=== PATIENT | female | born 1975 | race Caucasian/White ===

== ENCOUNTER → 2024-12-07 | Outpatient (CLI) | payer BC, SELFPAY ==
--- NOTE | 2024-12-07 16:22 | XR_ITS ---
Examination: Foot, right, 3 views Technique: AP, oblique, lateral views foot, 3 views Date and time of exam: December 04, 2024 1838 hrs. Indications: Injury to the foot today, foot pain. Findings: Moderate osteopenia No acute fracture No dislocation Impression: No acute fracture If foot pain persists, consider CT scan foot without contrast follow-up
== END | disposition home or self-care (01) ==
PROVIDERS: PCP Family Medicine; Referring Provider Student in an Organized Health Care Education/Training Program; Visit Provider Student in an Organized Health Care Education/Training Program
DX: M79.671 Pain in right foot (principal)
CPT/HCPCS: 73630

== ENCOUNTER → 2024-12-21 | Outpatient (CLI) | payer BC, SELFPAY ==
--- NOTE | 2024-12-21 08:45 | XR_ITS ---
Examination: MRI right foot, without contrast Date and time of exam: December 21, 2024 0854 hours INDICATIONS: Patient dropped pleural based on the foot November 02, 2024 with persistent dorsal pain stiffness and swelling Technique: Multiple axial sagittal and coronal images of the right foot have been obtained with the Siemens high-resolution 1.5 [employer] MRI scanner. Images obtained include T2-weighted fat-suppressed sagittal sections, TR 3500, TE 46, T2 weighted coronal fat suppressed images, TR 3050, TE 84, T2-weighted transverse fat suppressed images, TR 3260, TE 63, proton density transverse images, TR 4720 TE 46, and T1 weighted coronal images, TR 560, TE 13. Findings: Mild thickening of the plantar fascia Small effusion first metatarsophalangeal joint No soft tissue hematoma No foreign body No cortical bone destruction IMPRESSION: No occult fracture bone contusion or marrow edema Small effusion first metatarsophalangeal joint If foot pain persists, recommend repeat plain film foot series
== END | disposition home or self-care (01) ==
LOC: SMRI 08:29
PROVIDERS: PCP Student in an Organized Health Care Education/Training Program; Referring Provider Student in an Organized Health Care Education/Training Program; Visit Provider Student in an Organized Health Care Education/Training Program
DX: M25.474 Effusion, right foot (principal)
CPT/HCPCS: 73718